=== PATIENT | female | born 1975 | race Caucasian/White ===

== ENCOUNTER 2017-07-29 19:05 | Inpatient (IN) | payer OTHER ==
[~2017-07-29] VITALS: Ht 162.6 cm; Wt 87.2 kg
[2017-07-29 20:25] VITALS: BP 125/91; PULSE 103; RESP 16; TEMP 98.5; O2SAT 97
[2017-07-29] MEDS ORDERED: LORazepam 2 MG TAB PO PRN (20:45)
[2017-07-29] MEDS ORDERED: MAGNESIUM HYDROXIDE SUSP 30 ML CUP PO PRN (20:45)
[2017-07-29] MEDS ORDERED: BENZTROPINE MESYLATE 1 MG TAB PO PRN (20:45)
[2017-07-29] MEDS ORDERED: FLUMAZENIL 0.5 MG/5 ML VIAL IV PUSH PRN (20:45)
[2017-07-29] MEDS ORDERED: hydrOXYzine HCL 50 MG TAB PO PRN (20:45)
[2017-07-29] MEDS ORDERED: diphenhydrAMINE HCL 50 MG CAP PO PRN (20:45)
[2017-07-29] MEDS ORDERED: BENZTROPINE MESYLATE 2 MG/2 ML VIAL IM PRN (20:45)
[2017-07-29] MEDS ORDERED: LORazepam 2 MG/ML VIAL IV PUSH PRN ×4 (20:45)
[2017-07-29] MEDS ORDERED: ALUMINUM/MAGNESIUM/SIMETH 30 ML CUP PO PRN (20:45)
[2017-07-29] MEDS: LORazepam 1 MG TAB PO PRN (21:35)
[2017-07-29] MEDS: ACETAMINOPHEN 325 MG TAB PO PRN (21:35)
[2017-07-30] MEDS: ACETAMINOPHEN 325 MG TAB PO PRN (05:26)
[2017-07-30 05:36] VITALS: BP 109/62; PULSE 73; RESP 16; TEMP 98.1; O2SAT 95
[2017-07-30 07:56] LABS: AUTOMATED NEUTROPHIL # 5.1 TH/MM3 (1.8-7.7); BASOPHIL # 0.1 TH/MM3 (0-0.2); BASOPHIL % 0.7 % (0.0-2.0); EOSINOPHIL # 0.1 TH/MM3 (0-0.4); EOSINOPHIL % 1.5 % (0.0-4.0); HEMATOCRIT 40.8 % (35.0-46.0); HEMO FLAGS DIFF FINAL; LYMPH % 33.9 % (9.0-44.0); LYMPHOCYTE # 3.2 TH/MM3 (1.0-4.8); MEAN CELL VOLUME 97.6 FL (80.0-100.0); MEAN CORPUSCULAR HEMOGLOBIN 33.2 PG (27.0-34.0); MONO % 9.2 % (0.0-8.0); NEUT % 54.7 % (16.0-70.0); PLATELET COUNT 360 TH/MM3 (150-450); RED BLOOD COUNT 4.18 MIL/MM3 (4.00-5.30); RED CELL DISTRIBUTION WIDTH 14.3 % (11.6-17.2); WHITE BLOOD COUNT 9.3 TH/MM3 (4.0-11.0)
[2017-07-30 08:24] LABS: ANION GAP 12 MEQ/L (5-15); AST (GOT) 26 U/L (15-37); BLOOD UREA NITROGEN 19 MG/DL (7-18); CHLORIDE 102 MEQ/L (98-107); GLOMERULAR FILTRATION RATE 74 ML/MIN (>89); SODIUM (NA) 136 MEQ/L (136-145)
[2017-07-30 08:25] LABS: ALT (GPT) 25 U/L (10-53)
[2017-07-30 08:35] LABS: ALKALINE PHOSPHATASE 86 U/L (45-117); HDL CHOLESTEROL 96.7 MG/DL (40.0-60.0); LDL CHOLESTEROL 146 MG/DL (0-99); TOTAL BILIRUBIN ADULT 0.5 MG/DL (0.2-1.0)
[2017-07-30] MEDS: LORazepam 1 MG TAB PO PRN (08:44)
[2017-07-30] MEDS ORDERED: THIAMINE HCL 100 MG TAB PO SCH (09:00)
[2017-07-30] MEDS ORDERED: FOLIC ACID 1 MG TAB PO SCH (09:00)
[2017-07-30] MEDS ORDERED: REMOVE OLD PATCH T-DERMAL SCH (09:00)
[2017-07-30] MEDS ORDERED: NICOTINE 21 MG/24 HR PATCH T-DERMAL SCH (09:00)
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
[2017-07-30 12:39] LABS: HEMOGLOBIN A1a 1.1 %; HEMOGLOBIN A1b 1.3 %; HEMOGLOBIN Ao 86.2 %; HEMOGLOBIN F 0.3 %; HEMOGLOBIN LA1C 2.1 %; HEMOGLOBIN P3 3.6 %
[2017-07-30] MEDS ORDERED: THIA100 PO (12:57)
[2017-07-30] MEDS ORDERED: FOLI1TAB6 PO (12:57)
--- NOTE | 2017-07-30 13:17 | PD.TTN ---
Patient Problems 1. Discharge planning 2. Medication compliance 3. Knowledge deficit 4. Lack of coping skills Progress Toward Goals Provider Present: Dr. Blane Laguna Provider Input: Pt will be discharged AMA Nurse(s) Present: Christian Smith, ZARA Nurse(s) Input: Pt is being discharged today AMA. Psychiatric Counselors Present: CORINE Giron Psych Therapist Input: Pt is being discharged AMA. She will be set up with outpatient follow up appointments and will be taken home by friend. Group Spec/RT/OT/VAUGHAN Present: CLEMENT Dumont Group Spec/RT/OT/VAUGHAN Input: Pt is being discharged home. Discharge Plan SMA Pt is being discharged home and will be transported by her friend home. She will be set up with [facility] for outpatient psychiatric follow up services and given any necessary scripts. Documentation Scribe: CORINE Giron Jonathan LMHC Jul 30, 2017 13:17
== END 2017-07-30 14:30 | disposition left against medical advice (07) | DRG 882 ==
LOC: H270 20:30
PROVIDERS: ADMIT Psychiatry & Neurology Psychiatry; ATTEND Psychiatry & Neurology Psychiatry
DX: F43.25 Adjustment disorder with mixed disturbance of emotions and conduct (principal); F10.10 Alcohol abuse, uncomplicated; F31.9 Bipolar disorder, unspecified; F60.3 Borderline personality disorder; F43.10 Post-traumatic stress disorder, unspecified; F17.210 Nicotine dependence, cigarettes, uncomplicated; J45.909 Unspecified asthma, uncomplicated; M19.90 Unspecified osteoarthritis, unspecified site; Z81.8 Family history of other mental and behavioral disorders; Z62.810 Personal history of physical and sexual abuse in childhood; Z91.410 Personal history of adult physical and sexual abuse
CPT/HCPCS: 80053; 80061; 83036; 84443; 84703; 85025